=== PATIENT | female | born 1935 | race Caucasian/White ===

== ENCOUNTER → 2016-10-29 | Outpatient (CLI) | payer MEDICARE ==
[2016-10-29 11:54] LABS: Blood Urea Nitrogen 13 mg/dL (7-17); Non-African American GFR(MDRD) 60 (>60 ml/min/1.73 sqM)
--- NOTE | 2016-10-29 13:38 | CT ---
EXAMINATION TYPE: CT ChestAbdPelvis w con DATE OF EXAM: 10/29/2016 COMPARISON: 02/28/2016 HISTORY: Follow up breast cancer. No complaints at time of scan CT DLP: 1360 mGycm CONTRAST: CT scan of the chest, abdomen and pelvis is performed with Oral Contrast and with IV Contrast, patien t injected with 80 mL of Visipaque 320. CT Chest: LUNGS: There is a new right-sided pleural effusion measuring 2.6 there is also a new small left-sided pleural effusion measuring 1.7 cm in AP dimension. There is a left basilar compressive atelectasis. There are new scattered pulmonary nodules identified. Within the right lung are approximately 10 75 m m nodule seen. Within the left lung are approximately 7 or 8 7 6 mm nodule seen. The largest nodule i s noted within the lingula measuring 6 mm. Cm in AP dimension. MEDIASTINUM: Thoracic aorta is of normal caliber. The heart is not enlarged. No evidence for media stinal mass or adenopathy. Persistent thyroid nodularity. HILAR STRUCTURES: No evidence for mass. No hilar adenopathy is appreciated. OTHER: Left-sided mastectomy changes. CONTRAST CT ABDOMEN AND PELVIS FINDINGS: LIVER/GB: Enlarging suspicious lesion at the dome of the liver measuring 3.1 cm versus 2.4 cm. Lesion medial segment left hepatic lobe measuring 1.7 cm. Additional new lesion left hepatic lobe lat eral segment adjacent to the falciform ligament measures 2.1 cm. Scattered hepatic cysts are noted. PANCREAS: No inflammation. No distinct mass. SPLEEN: No splenic enlargement. No lesion seen. ADRENALS: No nodule. No thickening. KIDNEYS/BLADDER: Right nephrectomy changes noted. No hydronephrosis. No nephrolithiasis. No disctin ct renal mass. BOWEL: Normal appendix. Normal bowel caliber. No inflammation. GENITAL ORGANS: Calcified uterine mass is again noted. LYMPH NODES: No greater than 1cm abdominal or pelvic lymph nodes are appreciated. AORTA: No significant abnormality. OSSEOUS STRUCTURES: Essentially unchanged stable sclerotic osseous metaphyses. OTHER: No significant additional abnormality is seen. IMPRESSION: 1. Progressive and new hepatic lesions compatible with metastatic disease. 2. Bilateral pulmonary nodules and small pleural effusions suspicious for metastatic disease to the c hest. 3. Stable bony metastatic disease.
== END | disposition home or self-care (01) ==
LOC: RADCTMAIN 11:20
PROVIDERS: ATTEND Internal Medicine Hematology & Oncology
DX: C79.51 Secondary malignant neoplasm of bone (principal); C50.812 Malignant neoplasm of overlapping sites of left female breast; K76.9 Liver disease, unspecified; R91.8 Other nonspecific abnormal finding of lung field
CPT/HCPCS: 82565; 84520; 71260; 74177; 36415; Q9967

== ENCOUNTER 2016-12-04 13:10 | Inpatient (IN) | payer MEDICARE ==
--- NOTE | 2016-12-04 13:57 | ED ---
General Adult HPI - General Chief complaint: Shortness of Breath Stated complaint: SOB/cancer pt-sent by Dr. Cooper Time Seen by Provider: 12/04/16 13:10 Source: patient, RN notes reviewed Mode of arrival: wheelchair Limitations: no limitations - History of Present Illness Initial comments: This is a 81-year-old female who presents emergency Department complaining of shortness of breath. Her past medical history includes breast cancer for which she is receiving chemotherapy. Patient states since Thursday since been short of breath and it has been getting aggressively worse. Patient denies any fever chills or cough. Patient denies any chest pain or palpitations. Patient states exertion tends to make it worse. Patient denies any abdominal pain patient denies nausea vomiting diarrhea. Patient denies any leg swelling or calf tenderness. Patient denies any recent long trips or travel. Patient denies any headache patient denies numbness weakness. Patient denies lightheaded this or dizziness. - Related Data Home Medications Medication Instructions Recorded Confirmed ALPRAZolam [Xanax] 0.25 mg PO BID PRN 07/05/15 12/04/16 Calcium Carbonate [Calcium] 600 mg PO DAILY 12/04/16 12/04/16 Carvedilol [Coreg] 12.5 mg PO AC-BID 12/04/16 12/04/16 Cholecalciferol [Vitamin D3] 2,000 unit PO DAILY 12/04/16 12/04/16 Lisinopril [Zestril] 10 mg PO BID 12/04/16 12/04/16 Prochlorperazine [Compazine] 10 mg PO Q6H PRN 12/04/16 12/04/16 Ribociclib Succinate [Kisqali] 200 mg PO TID 12/04/16 12/04/16 Previous Rx's Medication Instructions Recorded Furosemide [Lasix] 20 mg PO DAILY #90 tablet 01/05/14 Allergies Allergy/AdvReac Type Severity Reaction Status Date / Time Penicillins Allergy Rash/Hives Verified 12/04/16 13:57 Review of Systems ROS Statement: Those systems with pertinent positive or pertinent negative responses have been documented in the HPI. ROS Other: All systems not noted in ROS Statement are negative. Past Medical History Past Medical History: Cancer, Heart Failure, Diabetes Mellitus, Hyperlipidemia, Hypertension, Renal Disease Additional Past Medical History / Comment(s): LT Breast Cancer which is metastatic involving the chest wall and lungs. Renal Cell CA, resected, EDEMA TO LOWER LEGS History of Any Multi-Drug Resistant Organisms: None Reported Additional Past Surgical History / Comment(s): cataracts LT & R EYE, right nephrectomy Past Anesthesia/Blood Transfusion Reactions: No Reported Reaction Past Psychological History: No Psychological Hx Reported Smoking Status: Never smoker Past Alcohol Use History: None Reported Past Drug Use History: None Reported - Past Family History Father Family Medical History: Congestive Heart Failure (CHF) Additional Family Medical History / Comment(s): AT AGE 87- CHF. AT AGE 82 HAD VALVE REPLACEMENT Mother Additional Family Medical History / Comment(s): MOM AT AGE 82-CERVICAL CA General Exam - General Exam Comments Initial Comments: GENERAL: Patient is well-developed and well-nourished. Patient is nontoxic and well- hydrated and is in mild distress. ENT: Neck is soft and supple. No significant lymphadenopathy is noted. Oropharynx is clear. Moist mucous membranes. Neck has full range of motion without eliciting any pain. EYES: The sclera were anicteric and conjunctiva were pink and moist. Extraocular movements were intact and pupils were equal round and reactive to light. Eyelids were unremarkable. PULMONARY: Unlabored respirations. Good breath sounds bilaterally. No audible rales rhonchi or wheezing was noted. CARDIOVASCULAR: There is a regular rate and rhythm without any murmurs gallops or rubs. Unable to fully assess the chest because of significant bandaging around the chest ABDOMEN: Soft and nontender with normal bowel sounds. SKIN: Skin is clear with no lesions or rashes and otherwise unremarkable. NEUROLOGIC: Patient is alert and oriented x3. Cranial nerves II through XII are grossly intact. Motor and sensory are also intact. Normal speech, volume and content. Symmetrical smile. MUSCULOSKELETAL: Normal extremities with adequate strength and full range of motion. No lower extremity swelling or edema. No calf tenderness. LYMPHATICS: No significant lymphadenopathy is noted PSYCHIATRIC: Normal psychiatric evaluation. Limitations: no limitations Course Vital Signs 12/04/16 12/04/16 12/04/16 13:17 15:10 16:21 Temperature 98.6 F Pulse Rate 68 68 65 Respiratory 18 18 18 Rate Blood Pressure 110/59 135/68 148/76 O2 Sat by Pulse 93 L 95 95 Oximetry 12/04/16 12/04/16 12/04/16 17:10 17:54 19:20 Temperature 98.5 F Pulse Rate 66 62 65 Respiratory 18 18 18 Rate Blood Pressure 158/81 138/87 143/76 O2 Sat by Pulse 95 95 96 Oximetry 12/04/16 19:38 Temperature 98.6 F Pulse Rate Respiratory Rate Blood Pressure O2 Sat by Pulse Oximetry Medical Decision Making - Medical Decision Making EKG is a very poor quality secondary to the bandaging around the patient's chest does show 60 bpm and in the limb leads Chest x-ray showed pulmonary edema. Chest x-ray also showed bilateral pleural effusions. I started the patient Lasix and nitroglycerin at that time. Patient had an elevated d-dimer so I ordered a CAT scan of the chest. I spoke with because he agreed to admit the patient admitted the patient I wrote admitting orders. I continue the Lasix Nitropaste on the floor. I consult cardiology. - Lab Data Result diagrams: 12/06/16 05:58 12/06/16 05:58 Lab Results 12/04/16 12/04/16 12/04/16 Range/Units 14:00 14:00 14:00 WBC 7.9 (3.8-10.6) k/uL RBC 3.60 L (3.80-5.40) m/uL Hgb 12.2 (11.4-16.0) gm/dL Hct 37.9 (34.0-46.0) % MCV 105.3 H (80.0-100.0) fL MCH 33.8 (25.0-35.0) pg MCHC 32.2 (31.0-37.0) g/dL RDW 15.4 (11.5-15.5) % Plt Count 252 (150-450) k/uL Neutrophils % 90 % Lymphocytes % 7 % Monocytes % 1 % Eosinophils % 1 % Basophils % 0 % Neutrophils # 7.2 (1.3-7.7) k/uL Lymphocytes # 0.6 L (1.0-4.8) k/uL Monocytes # 0.1 (0-1.0) k/uL Eosinophils # 0.0 (0-0.7) k/uL Basophils # 0.0 (0-0.2) k/uL Macrocytosis Moderate PT (9.0-12.0) sec INR (<1.2) APTT (22.0-30.0) sec D-Dimer (<0.60) mg/L FEU Sodium 139 (137-145) mmol/L Potassium 4.3 (3.5-5.1) mmol/L Chloride 99 (98-107) mmol/L Carbon Dioxide 29 (22-30) mmol/L Anion Gap 11 mmol/L BUN 32 H (7-17) mg/dL Creatinine 1.20 H (0.52-1.04) mg/dL Est GFR (MDRD) Af Amer 53 (>60 ml/min/1.73 sqM) Est GFR (MDRD) Non-Af 43 (>60 ml/min/1.73 sqM) Glucose 205 H (74-99) mg/dL Calcium 8.2 L (8.4-10.2) mg/dL Magnesium 2.2 (1.6-2.3) mg/dL Total Bilirubin 0.5 (0.2-1.3) mg/dL AST 36 (14-36) U/L ALT 53 H (9-52) U/L Alkaline Phosphatase 211 H (38-126) U/L Total Creatine Kinase 35 (30-135) U/L CK-MB (CK-2) 0.7 (0.0-2.4) ng/mL CK-MB (CK-2) Rel Index 2.0 Troponin I 0.202 H* (0.000-0.034) ng/mL NT-Pro-B Natriuret Pep pg/mL Total Protein 5.9 L (6.3-8.2) g/dL Albumin 3.1 L (3.5-5.0) g/dL 12/04/16 12/04/16 Range/Units 14:00 14:00 WBC (3.8-10.6) k/uL RBC (3.80-5.40) m/uL Hgb (11.4-16.0) gm/dL Hct (34.0-46.0) % MCV (80.0-100.0) fL MCH (25.0-35.0) pg MCHC (31.0-37.0) g/dL RDW (11.5-15.5) % Plt Count (150-450) k/uL Neutrophils % % Lymphocytes % % Monocytes % % Eosinophils % % Basophils % % Neutrophils # (1.3-7.7) k/uL Lymphocytes # (1.0-4.8) k/uL Monocytes # (0-1.0) k/uL Eosinophils # (0-0.7) k/uL Basophils # (0-0.2) k/uL Macrocytosis PT 10.9 (9.0-12.0) sec INR 1.1 (<1.2) APTT 24.8 (22.0-30.0) sec D-Dimer 3.00 H (<0.60) mg/L FEU Sodium (137-145) mmol/L Potassium (3.5-5.1) mmol/L Chloride (98-107) mmol/L Carbon Dioxide (22-30) mmol/L Anion Gap mmol/L BUN (7-17) mg/dL Creatinine (0.52-1.04) mg/dL Est GFR (MDRD) Af Amer (>60 ml/min/1.73 sqM) Est GFR (MDRD) Non-Af (>60 ml/min/1.73 sqM) Glucose (74-99) mg/dL Calcium (8.4-10.2) mg/dL Magnesium (1.6-2.3) mg/dL Total Bilirubin (0.2-1.3) mg/dL AST (14-36) U/L ALT (9-52) U/L Alkaline Phosphatase (38-126) U/L Total Creatine Kinase (30-135) U/L CK-MB (CK-2) (0.0-2.4) ng/mL CK-MB (CK-2) Rel Index Troponin I (0.000-0.034) ng/mL NT-Pro-B Natriuret Pep 1760 pg/mL Total Protein (6.3-8.2) g/dL Albumin (3.5-5.0) g/dL Critical Care Time Critical Care Time: Yes Total Critical Care Time: 35 Disposition Clinical Impression: Congestive heart failure, Bilateral pleural effusion Disposition: ADMITTED IP TO THIS [facility] Time of Disposition: 10:25
[2016-12-04 14:25] LABS: Basophils % (A) 0 %; CH 34.6; Eosinophils % (A) 1 %; HCT 37.9 % (34.0-46.0); HDW 2.32; HGB 12.2 gm/dL (11.4-16.0); Luc # (Auto) 0.11; Luc % (Auto) 1; Lymphocytes # (A) 0.6 k/uL (1.0-4.8); Lymphocytes % (A) 7 %; MCH 33.8 pg (25.0-35.0); MCHC 32.2 g/dL (31.0-37.0); MCV 105.3 fL (80.0-100.0); Macrocytosis Moderate; Mean Platelet Volume 8.8; Monocytes # (A) 0.1 k/uL (0-1.0); Monocytes % (A) 1 %; Neutrophils # (A) 7.2 k/uL (1.3-7.7); Neutrophils % (A) 90 %; RDW 15.4 % (11.5-15.5); WBC 7.9 k/uL (3.8-10.6); WBC (Perox) 8.06
[2016-12-04 14:36] LABS: Calcium 8.2 mg/dL (8.4-10.2); Magnesium 2.2 mg/dL (1.6-2.3); Potassium 4.3 mmol/L (3.5-5.1); Total Bilirubin 0.5 mg/dL (0.2-1.3); Total Protein 5.9 g/dL (6.3-8.2)
--- NOTE | 2016-12-04 14:41 | XR ---
EXAMINATION TYPE: XR chest 2V DATE OF EXAM: 12/04/2016 COMPARISON: 01/06/2014 HISTORY: Difficulty breathing FINDINGS: There are bilateral pleural effusions with cardiomegaly and bibasilar infiltrate. There is a diffuse interstitial pattern. Arthropathy of the shoulders and diffuse osteopenia. IMPRESSION: 1. Correlate for CHF with bilateral effusion and consolidation.
[2016-12-04 14:54] LABS: INR 1.1 (<1.2); Partial Thromboplastin Time 24.8 sec (22.0-30.0); Prothrombin Time 10.9 sec (9.0-12.0)
[2016-12-04 15:00] LABS: Creatine Kinase MB 0.7 ng/mL (0.0-2.4)
[2016-12-04 15:06] LABS: Troponin I 0.202 ng/mL (0.000-0.034)
[2016-12-04] MEDS ORDERED: RX INFO: IV CONTRAST WAS GIVEN 1 EACH MISC MISCELLANE PRN (15:09)
[2016-12-04] MEDS ORDERED: NITROGLYCERIN OINT 1 INCH/GM PACKET TOPICAL STA (16:55)
[2016-12-04] MEDS ORDERED: FUROSEMIDE 10 MG/ML 4 ML VIAL IV STA (16:55)
--- NOTE | 2016-12-04 17:00 | CT ---
EXAMINATION TYPE: CT chest angio for PE DATE OF EXAM: 12/04/2016 COMPARISON: Chest x-ray earlier today. CT chest abdomen and pelvis from October 29, 2016 HISTORY: SOB and elevated D-Dimer. Chest pain per order. History of breast and renal cancer. CT DLP: 391 mGycm. Automated Exposure Control for Dose Reduction was Utilized. CONTRAST: CTA scan of the thorax is performed with IV Contrast, patient injected with 80 mL of Visipaque 320, p ulmonary embolism protocol. MIP Images are created on CT scanner and reviewed. FINDINGS: LUNGS: There are now moderate right greater than left bilateral pleural effusions increased in size f rom prior study extending to lung apices. There is associated compressive atelectasis in both bases. Respiratory motion artifact is seen. No pneumothorax is present bilaterally. Previously described nod ules are scattered by increasing effusions and associated atelectasis. MEDIASTINUM: There is suboptimal bolus with equal contrast seen in the right and left systems and het erogeneity identified, there is no large saddle central pulmonary embolism, smaller segmental and sub segmental PE cannot be entirely excluded on this exam. There are no greater than 1 cm hilar or media stinal lymph nodes. Cardiomegaly is redemonstrated. There is slightly more prominent small to tiny pe ricardial effusion Coronary artery calcification is again seen which is noted marker for coronary art dejon disease. Heterogeneous nodular appearance to thyroid gland is redemonstrated. OTHER: There is persistent ill-defined heterogeneous hypodense 3.2 cm metastatic lesion posterior rig ht hepatic dome on axial image 122. There is persistent 2.2 cm heterogeneous hypodense metastatic les ion left hepatic lobe on axial image 149. Surgical clips from right-sided nephrectomy are partially i antonia. There is persistent abnormal thickening over the right breast with asymmetric heterogeneous fibroglan dular tissue seen with background of dense tissue noted in both breasts, cannot rule out underlying m ass. Osseous structures are demineralized. There are multilevel sclerotic lesions involving the spine sternal and bilateral ribs consistent with diffuse osseous metastatic disease. Note is made of some asymmetric soft tissue swelling and edema in the visualized right upper extremi ty coronal images 91 through 111. IMPRESSION: 1. Suboptimal study due to predominantly significant respiratory motion artifact degradation, no larg e central pulmonary embolism, smaller segmental and subsegmental PE cannot be excluded though likely not present. 2. Consider worsening CHF exacerbation as there is cardiomegaly with now moderate size right greater than left pleural effusions. 3. Possible residual inflammatory tumor versus treated neoplasm right breast. Diffuse osseous metasta tic disease is redemonstrated. Hepatic metastatic disease is redemonstrated. 4. Right upper extremity swelling and edema partially imaged could reflect product of prior breast river rgery and axillary lymph node dissection, other etiologies are not excluded. Clinical correlation adv ised.
[2016-12-04] MEDS ORDERED: ONDANSETRON 4 MG/2 ML VIAL IVP STA (17:15)
[2016-12-04] MEDS ORDERED: ASPIRIN 325 MG TAB PO STA (17:15)
[2016-12-04] MEDS ORDERED: FUROSEMIDE 10 MG/ML 4 ML VIAL IV SCH (17:15)
[2016-12-04] MEDS ORDERED: ALPRAZolam 0.25 MG TAB PO PRN (21:04)
[2016-12-04] MEDS ORDERED: PROCHLORPERAZINE 10 MG TAB PO PRN (21:04)
[2016-12-04] MEDS: FAMOTIDINE 20 MG TAB PO SCH (22:09)
[2016-12-04] MEDS: CARVEDILOL 12.5 MG TAB PO SCH (22:09)
[2016-12-04] MEDS: NITROGLYCERIN OINT 1 INCH/GM PACKET TOPICAL SCH (22:09)
[2016-12-04] MEDS: LISINOPRIL 10 MG TAB PO SCH (22:09)
[2016-12-05] MEDS: FUROSEMIDE 10 MG/ML 4 ML VIAL IV SCH ×3 (00:15→15:43)
[2016-12-05] MEDS: HEPARIN SODIUM,PORCINE 5,000 UNIT/ML 1 ML VIAL SQ SCH ×3 (00:15→15:43)
[2016-12-05] MEDS: METOCLOPRAMIDE 5 MG/ML 2 ML VIAL IVP PRN (00:18)
[2016-12-05 06:05] LABS: Basophils % (A) 0 %; CH 34.3; CHCM 32.2; Eosinophils % (A) 0 %; HDW 2.31; HGB 10.9 gm/dL (11.4-16.0); Luc # (Auto) 0.04; Luc % (Auto) 1; Lymphocytes # (A) 0.5 k/uL (1.0-4.8); Lymphocytes % (A) 12 %; MCH 33.4 pg (25.0-35.0); MCHC 31.1 g/dL (31.0-37.0); MCV 107.2 fL (80.0-100.0); Macrocytosis Moderate; Mean Platelet Volume 8.7; Monocytes # (A) 0.1 k/uL (0-1.0); Monocytes % (A) 1 %; Neutrophils # (A) 3.5 k/uL (1.3-7.7); Neutrophils % (A) 85 %; RBC 3.27 m/uL (3.80-5.40); RDW 15.6 % (11.5-15.5); WBC 4.1 k/uL (3.8-10.6); WBC (Perox) 4.12
[2016-12-05 06:19] LABS: Calcium 7.2 mg/dL (8.4-10.2); Potassium 4.1 mmol/L (3.5-5.1)
[2016-12-05] MEDS: CARVEDILOL 12.5 MG TAB PO SCH ×2 (06:50→15:44)
[2016-12-05] MEDS: CHOLECALCIFEROL 1,000 UNIT TAB PO SCH (08:06)
[2016-12-05] MEDS: CALCIUM CARBONATE 500 MG CHEWABLE PO SCH (08:07)
[2016-12-05] MEDS: NITROGLYCERIN OINT 1 INCH/GM PACKET TOPICAL SCH ×2 (08:07→13:20)
[2016-12-05] MEDS: FAMOTIDINE 20 MG TAB PO SCH (08:07)
[2016-12-05] MEDS: LISINOPRIL 10 MG TAB PO SCH ×2 (08:17→20:26)
[2016-12-05] MEDS ORDERED: ASPIRIN 325 MG TAB PO SCH (09:00)
--- NOTE | 2016-12-05 15:10 | P.CRDCN ---
History of Present Illness Consult date: 12/05/16 Requesting physician: Enoc Martinez Consult reason: congestive heart failure Chief complaint: Shortness of breath History of present illness: This is a pleasant 81-year-old female with history of stage IV breast CA, hypertension, insulin requiring diabetes, hyperlipidemia, who presented to the hospital with symptoms of progressively worsening shortness of breath. Patient does have history of pericardial effusion with pericardiectomy and evacuation of effusion performed in 2013. She presents to the hospital with symptoms of progressively worsening shortness of breath. EKG on arrival showed a normal sinus rhythm with no acute changes. Chest x-ray revealed congestive heart failure with bilateral effusions and consolidation. CT of the chest was a suboptimal study due to predominantly significant respiratory motion artifact degradation. No large central pulmonary embolism, smaller segmental and subsegmental PE cannot be excluded although likely not present. Consider worsening congestive heart failure exacerbation as there is cardiomegaly with now moderate size right greater than left pleural effusions. Possible residual inflammatory tumor versus treated neoplasm of the right breast. Blood pressure on arrival here 110/60 with a heart rate in the 60s, 93% on room air. Hemoglobin 10.9, 12.2 yesterday, d-dimer 3.0, potassium 4.1, BUN 35, creatinine 1.2. BNP level 1760, troponin 0.202. Time of my examination, patient is resting comfortably in bed, daughter at bedside. She appears comfortable, no complaints at present. Past Medical History Past Medical History: Cancer, Heart Failure, Diabetes Mellitus, Hypertension, Renal Disease Additional Past Medical History / Comment(s): LT Breast Cancer which is metastatic involving the chest wall and lungs. Renal Cell CA, resected, EDEMA TO LOWER LEGS History of Any Multi-Drug Resistant Organisms: None Reported Additional Past Surgical History / Comment(s): cataracts LT & R EYE, right nephrectomy Past Anesthesia/Blood Transfusion Reactions: No Reported Reaction Past Psychological History: No Psychological Hx Reported Smoking Status: Never smoker Past Alcohol Use History: None Reported Past Drug Use History: None Reported - Past Family History Father Family Medical History: Congestive Heart Failure (CHF) Additional Family Medical History / Comment(s): AT AGE 87- CHF. AT AGE 82 HAD VALVE REPLACEMENT Mother Additional Family Medical History / Comment(s): MOM AT AGE 82-CERVICAL CA Medications and Allergies Home Medications Medication Instructions Recorded Confirmed Type ALPRAZolam [Xanax] 0.25 mg PO BID PRN 07/05/15 12/04/16 History Calcium Carbonate [Calcium] 600 mg PO DAILY 12/04/16 12/04/16 History Carvedilol [Coreg] 12.5 mg PO AC-BID 12/04/16 12/04/16 History Cholecalciferol [Vitamin D3] 2,000 unit PO DAILY 12/04/16 12/04/16 History Lisinopril [Zestril] 10 mg PO BID 12/04/16 12/04/16 History Prochlorperazine [Compazine] 10 mg PO Q6H PRN 12/04/16 12/04/16 History Ribociclib Succinate [Kisqali] 200 mg PO TID 12/04/16 12/04/16 History Allergies Allergy/AdvReac Type Severity Reaction Status Date / Time Penicillins Allergy Rash/Hives Verified 12/04/16 13:57 Physical Exam Vitals: Vital Signs Temp Pulse Pulse Resp BP BP Pulse Ox 12/05/16 12:00 16 12/05/16 11:31 97.1 F L 72 16 130/66 92 L 12/05/16 08:00 97.1 F L 70 16 99/54 96 12/05/16 04:00 96.9 F L 62 18 97/52 97 12/05/16 00:00 98.2 F 69 18 139/78 98 12/04/16 20:00 97.0 F L 67 18 144/66 96 12/04/16 19:38 98.6 F 12/04/16 19:20 65 18 143/76 96 12/04/16 17:54 62 18 138/87 95 12/04/16 17:10 98.5 F 66 18 158/81 95 12/04/16 16:21 65 18 148/76 95 12/04/16 15:10 68 18 135/68 95 Intake and Output 12/05/16 12/05/16 12/05/16 06:59 14:59 22:59 Output Total 300 Balance -300 Output: Urine 300 Other: # Voids 1 Weight 67.8 kg PHYSICAL EXAMINATION: HEENT: Head is atraumatic, normocephalic. Pupils equal, round. Neck is supple. There is elevated jugular venous pressure. HEART EXAMINATION: Heart S1, S2 normal. No murmur or gallop heard. CHEST EXAMINATION: Revealed diminished air entry to bilateral bases. Dressing in place the entire anterior chest wall area ABDOMEN: Soft, nontender. Bowel sounds are heard. No organomegaly noted. EXTREMITIES: 2+ peripheral pulses with evidence of peripheral edema and no calf tenderness noted. NEUROLOGIC patient is awake, alert and oriented -3. . Results 12/05/16 05:50 12/05/16 05:50 Cardiac Enzymes 12/04/16 Range/Units 14:00 CK-MB (CK-2) 0.7 (0.0-2.4) ng/mL Troponin I 0.202 H* (0.000-0.034) ng/mL CBC 12/05/16 Range/Units 05:50 WBC 4.1 (3.8-10.6) k/uL RBC 3.27 L (3.80-5.40) m/uL Hgb 10.9 L (11.4-16.0) gm/dL Hct 35.0 (34.0-46.0) % Plt Count 226 (150-450) k/uL Comprehensive Metabolic Panel 12/05/16 Range/Units 05:50 Sodium 139 (137-145) mmol/L Potassium 4.1 (3.5-5.1) mmol/L Chloride 104 (98-107) mmol/L Carbon Dioxide 27 (22-30) mmol/L BUN 35 H (7-17) mg/dL Creatinine 1.20 H (0.52-1.04) mg/dL Glucose 161 H (74-99) mg/dL Calcium 7.2 L (8.4-10.2) mg/dL Current Medications Generic Name Dose Route Start Last Admin Trade Name Freq PRN Reason Stop Dose Admin Alprazolam 0.25 mg 12/04/16 21:04 Xanax PO BID PRN Anxiety Aspirin 81 mg 12/06/16 09:00 Aspirin PO DAILY [facility] Calcium Carbonate/Glycine 500 mg 12/05/16 12:00 12/05/16 08:07 Tums PO 500 mg DAILY@1200 [facility] Administration Carvedilol 12.5 mg 12/04/16 21:30 12/05/16 06:50 Coreg PO 12.5 mg AC-BID [facility] Administration Cholecalciferol 2,000 unit 12/05/16 12:00 12/05/16 08:06 Vitamin D3 PO 2,000 unit DAILY@1200 [facility] Administration Famotidine 20 mg 12/06/16 09:00 Pepcid PO DAILY [facility] Furosemide 40 mg 12/05/16 00:00 12/05/16 08:06 Lasix IV 40 mg Q8H [facility] Administration Heparin Sodium (Porcine) 5,000 unit 12/05/16 00:00 12/05/16 08:06 Heparin SQ 5,000 unit Q8HR [facility] Administration Lisinopril 10 mg 12/04/16 21:30 12/05/16 08:17 Zestril PO Not Given BID [facility] Metoclopramide HCl 10 mg 12/04/16 21:11 12/05/16 00:18 Reglan IVP 10 mg Q6HR PRN Administration Nausea Miscellaneous Information 1 each 12/04/16 15:09 12/04/16 17:20 Rx Info: Iv Contrast Was Given MISCELLANE 12/06/16 15:09 1 each DAILY PRN Administration Per Protocol Nitroglycerin 1 inch 12/04/16 22:00 12/05/16 13:20 Nitro-Bid Oint TOPICAL Not Given QID [facility] Prochlorperazine Maleate 10 mg 12/04/16 21:04 Compazine PO Q6H PRN Nausea Intake and Output 12/05/16 12/05/16 12/05/16 06:59 14:59 22:59 Output Total 300 Balance -300 Output: Urine 300 Other: # Voids 1 Weight 67.8 kg 12/05/16 05:50 12/05/16 05:50 EKG Interpretations (text) EKG shows normal sinus rhythm with no acute changes. Assessment and Plan Plan: Assessment and plan #1 systolic congestive heart failure acute on chronic. Most recent echocardiogram with Doppler study we have available was performed in 2013 at that time the patient had an ejection fraction of less than 20%. She did at that time however have a large pericardial effusion and underwent pericardiectomy with evacuation of pericardial effusion. #2 stage IV breast cancer with metastases involving the chest wall and lungs, undergoing chemotherapy. #3 hypertension #4 acute on chronic kidney disease Plan We will attempt to perform at least a limited echocardiogram with Doppler study to assess the patient's LV function and assess for possible fluid. Continue diuresing with IV Lasix. Continue to monitor intake and output along with daily weights. We will decrease her aspirin to 81 mg daily. Discontinue Nitropaste. Continue Coreg and lisinopril. Add a small dose of Aldactone to her medication regime. Further recommendations to follow. DNP note has been reviewed, I agree with a documented findings and plan of care. Patient was seen and examined.
[2016-12-05] MEDS: RIBOCICLIB SUCCINATE PO SCH ×2 (15:39→15:56)
--- NOTE | 2016-12-05 17:44 | P.CONS ---
History of Present Illness - Reason for Consult Consult date: 12/05/16 metastatic breast cancer, on treatment Requesting physician: Gilbert Mack - Chief Complaint SOB - History of Present Illness Ms. Dawson is a very pleasant female patient well known to our practice a very extensive breast cancer history extending back at least 2012. Pt has had multiple different lines of treatment. Over the last year the patient has had fungating tumors of the chest wall associated with her breast cancer, patient and her family have been caring for these wounds very well. Dr. 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 She has been on ribociclib for just about one week. Patient was due in the office today for er- evaluation. Patient states that she had progressive shortness of breath and difficulty in breathing over the last day or so, she denied fevers, oral irritation, cough, frothy sputum, chest pain, she did have nausea but no vomiting, denied abdominal pain, dysuria, hematuria, diarrhea or constipation, bleeding or pain. Review of Systems All systems: negative Constitutional: Reports as per HPI Past Medical History Past Medical History: Cancer, Heart Failure, Diabetes Mellitus, Hypertension, Renal Disease Additional Past Medical History / Comment(s): LT Breast Cancer which is metastatic involving the chest wall and lungs. Renal Cell CA, resected, EDEMA TO LOWER LEGS History of Any Multi-Drug Resistant Organisms: None Reported Additional Past Surgical History / Comment(s): cataracts LT & R EYE, right nephrectomy Past Anesthesia/Blood Transfusion Reactions: No Reported Reaction Past Psychological History: No Psychological Hx Reported Smoking Status: Never smoker Past Alcohol Use History: None Reported Past Drug Use History: None Reported - Past Family History Father Family Medical History: Congestive Heart Failure (CHF) Additional Family Medical History / Comment(s): AT AGE 87- CHF. AT AGE 82 HAD VALVE REPLACEMENT Mother Additional Family Medical History / Comment(s): MOM AT AGE 82-CERVICAL CA Medications and Allergies Home Medications Medication Instructions Recorded Confirmed Type ALPRAZolam [Xanax] 0.25 mg PO BID PRN 07/05/15 12/04/16 History Calcium Carbonate [Calcium] 600 mg PO DAILY 12/04/16 12/04/16 History Carvedilol [Coreg] 12.5 mg PO AC-BID 12/04/16 12/04/16 History Cholecalciferol [Vitamin D3] 2,000 unit PO DAILY 12/04/16 12/04/16 History Lisinopril [Zestril] 10 mg PO BID 12/04/16 12/04/16 History Prochlorperazine [Compazine] 10 mg PO Q6H PRN 12/04/16 12/04/16 History Ribociclib Succinate [Kisqali] 200 mg PO TID 12/04/16 12/04/16 History Allergies Allergy/AdvReac Type Severity Reaction Status Date / Time Penicillins Allergy Rash/Hives Verified 12/04/16 13:57 Physical Exam Vitals: Vital Signs Temp Pulse Pulse Resp BP BP Pulse Ox 12/05/16 15:54 63 18 12/05/16 15:53 97.3 F L 63 18 141/71 93 L 12/05/16 12:00 16 12/05/16 11:31 97.1 F L 72 16 130/66 92 L 12/05/16 08:00 97.1 F L 70 16 99/54 96 12/05/16 04:00 96.9 F L 62 18 97/52 97 12/05/16 00:00 98.2 F 69 18 139/78 98 12/04/16 20:00 97.0 F L 67 18 144/66 96 12/04/16 19:38 98.6 F 12/04/16 19:20 65 18 143/76 96 12/04/16 17:54 62 18 138/87 95 12/04/16 17:10 98.5 F 66 18 158/81 95 Intake and Output 12/05/16 12/05/16 12/05/16 06:59 14:59 22:59 Output Total 300 Balance -300 Output: Urine 300 Other: # Voids 1 Weight 67.8 kg 67.8 kg Patient Weight 12/06/16 06:59 Weight 67.8 kg - Constitutional General appearance: average body habitus, cooperative, no acute distress - EENT Eyes: anicteric sclerae, EOMI, PERRLA ENT: normal oropharynx - Neck Neck: no lymphadenopathy - Respiratory Respiratory: right: CTA, left: diminished - Cardiovascular Rhythm: regular Heart sounds: normal: S1, S2 Abnormal Heart Sounds: no systolic murmur, no diastolic murmur, no rub, no S3 Gallop, no S4 Gallop, no click, no other leg Peripheral Edema: bilateral: None - Gastrointestinal General gastrointestinal: no absent bowel sounds, no decreased bowel sounds, no distended, no hepatomegaly, no hyperactive bowel sounds, normal bowel sounds, no organomegaly, no rigid, no scaphoid, soft, no splenomegaly, no tenderness, no umbilical hernia, no ventral hernia - Integumentary Integumentary: decreased turgor - Neurologic Neurologic: CNII-XII intact - Musculoskeletal Musculoskeletal: generalized weakness - Psychiatric Psychiatric: A&O x's 3, appropriate affect, intact judgment & insight Results CBC & Chem 7: 12/05/16 05:50 12/05/16 05:50 Labs: Abnormal Lab Results - Last 24 Hours (Table) 12/05/16 12/05/16 Range/Units 05:50 05:50 RBC 3.27 L (3.80-5.40) m/uL Hgb 10.9 L (11.4-16.0) gm/dL MCV 107.2 H (80.0-100.0) fL RDW 15.6 H (11.5-15.5) % Lymphocytes # 0.5 L (1.0-4.8) k/uL BUN 35 H (7-17) mg/dL Creatinine 1.20 H (0.52-1.04) mg/dL Glucose 161 H (74-99) mg/dL Calcium 7.2 L (8.4-10.2) mg/dL Comments: EKG reviewed Chest x-ray: report reviewed CT scan - chest: report reviewed Assessment and Plan (1) Breast cancer Status: Chronic Plan: CT of the chest was reviewed by Dr. Palmer. Evidence is not convincing of PE, patient is not on full dose anticoagulation. Agree with DVT prophylaxis. Cardiology consultation reviewed. EKG report was reviewed. QT was documented at 776 ms, ribociclib does require cardiac monitoring, and a potential complication is QT prolongation. Ribociclib will be held for now. This was reinforced with the patient several times. Did contact nursing and asked him to remove the medication from the patient's bedside. Patient was told not to resume the medication until she is been reevaluated in the office. Patient is being monitored and managed by cardiology. We'll consider resuming ribociclib at a reduced dose once patient has been treated medically and reevaluated.
--- NOTE | 2016-12-05 20:16 | ECHOF ---
Referral Reason:chf MEASUREMENTS -------- HEIGHT: 160.0 cm WEIGHT: 67.6 kg BP: 130/66 RVIDd: 3.9 cm (< 3.3) IVSd: 1.0 cm (0.6 - 1.1) LVIDd: 4.5 cm (3.9 - 5.3) LVPWd: 1.0 cm (0.6 - 1.1) IVSs: 1.5 cm LVIDs: 2.1 cm LVPWs: 1.5 cm MV E Osbaldo: 0.86 m/s MV DecT: 245 ms MV A Osbaldo: 0.85 m/s MV E/A Ratio: 1.01 RAP: 5.00 mmHg RVSP: 20.24 mmHg FINDINGS -------- Sinus rhythm. This was a technically difficult study with suboptimal views. Due to recent chest wall radiation, patients entire chest was covered in bandages. Overall left ventricular systolic function is normal with, an EF between 65 - 70 %. The right ventricle is mild to moderately enlarged. The left atrium is normal in size. The right atrium is normal in size. Aortic valve is trileaflet and is mildly thickened. There is no evidence of aortic regurgitation. There is no evidence of aortic stenosis. The mitral valve leaflets are mildly thickened. Mild mitral annular calcification present. There is trace to mild mitral regurgitation. Trace tricuspid regurgitation present. There is no evidence of pulmonary hypertension. The right ventricular systolic pressure, as measured by Doppler, is 20.24mmHg. The pulmonic valve was not well visualized. The aortic root size is normal. Normal inferior vena cava with normal inspiratory collapse consistent with estimated right atrial pressure of 5 mmHg. The pericardium is normal. There is no pericardial effusion. Large p leural Effusion with Fibrin. CONCLUSIONS -------- 1. Sinus rhythm. 2. The mitral valve leaflets are mildly thickened. 3. Mild mitral annular calcification present. 4. There is trace to mild mitral regurgitation. 5. Trace tricuspid regurgitation present. 6. There is no evidence of pulmonary hypertension. 7. The right ventricular systolic pressure, as measured by Doppler, is 20.24mmHg. 8. The pulmonic valve was not well visualized. 9. The aortic root size is normal. 10. There is no pericardial effusion. 11. Large pleural Effusion with Fibrin. 12. This was a technically difficult study with suboptimal views. 13. Due to recent chest wall radiation, patients entire chest was covered in bandages. 14. Overall left ventricular systolic function is normal with, an EF between 65 - 70 %. 15. The right ventricle is mild to moderately enlarged. 16. The left atrium is normal in size. 17. Aortic valve is trileaflet and is mildly thickened. 18. There is no evidence of aortic regurgitation. 19. There is no evidence of aortic stenosis. DETENTION SERGEANT: Jeramie Lang RDCS
[2016-12-06] MEDS: HEPARIN SODIUM,PORCINE 5,000 UNIT/ML 1 ML VIAL SQ SCH ×4 (00:15→23:55)
[2016-12-06] MEDS: FUROSEMIDE 10 MG/ML 4 ML VIAL IV SCH ×4 (00:16→23:55)
[2016-12-06] MEDS: CARVEDILOL 12.5 MG TAB PO SCH ×2 (06:12→18:09)
[2016-12-06 06:14] LABS: Basophils % (A) 0 %; CHCM 32.5; Eosinophils % (A) 0 %; HCT 35.6 % (34.0-46.0); Macrocytosis Moderate; RDW 15.5 % (11.5-15.5); WBC 4.1 k/uL (3.8-10.6)
[2016-12-06 06:20] LABS: CH 34.5; HDW 2.28; HGB 11.2 gm/dL (11.4-16.0); Luc # (Auto) 0.06; Luc % (Auto) 1; Lymphocytes # (A) 0.5 k/uL (1.0-4.8); Lymphocytes % (A) 12 %; MCH 33.4 pg (25.0-35.0); MCHC 31.3 g/dL (31.0-37.0); MCV 106.6 fL (80.0-100.0); Mean Platelet Volume 8.2; Monocytes % (A) 1 %; Neutrophils # (A) 3.5 k/uL (1.3-7.7); Neutrophils % (A) 85 %; RBC 3.34 m/uL (3.80-5.40); WBC (Perox) 4.33
[2016-12-06 06:23] LABS: Calcium 7.5 mg/dL (8.4-10.2); Potassium 3.4 mmol/L (3.5-5.1)
[2016-12-06] MEDS: ASPIRIN 81 MG CHEW PO SCH (08:32)
[2016-12-06] MEDS: LISINOPRIL 10 MG TAB PO SCH ×2 (08:32→21:01)
[2016-12-06] MEDS ORDERED: FAMOTIDINE 20 MG TAB PO SCH (09:00)
--- NOTE | 2016-12-06 12:03 | P.PN ---
Subjective Principal diagnosis: CHF This is a pleasant 81-year-old female patient with known stage IV breast cancer presented to the hospital with progressive dyspnea. The patient was diagnosed with congestive heart failure exacerbation and she was started on Lasix IV. She underwent a chest x-ray and computed tomography scan and both showed what it seems to be bilateral pleural effusion. PE was ruled out by the CTA. On follow-up with the patient today, she stated that she is feeling slightly better. She still have managed breathing sounds bilaterally most prominent on the left side. Objective - Vital Signs Vital signs: Vital Signs Temp 98.3 F 12/06/16 10:49 Pulse 58 L 12/06/16 10:49 Resp 18 12/06/16 10:49 BP 126/59 12/06/16 10:49 Pulse Ox 93 L 12/06/16 10:49 Intake & Output 12/05/16 12/06/16 12/06/16 18:59 06:59 18:59 Intake Total 365 Output Total 200 Balance 165 Weight 67.8 kg 65.5 kg Intake: Oral 365 Output: Urine 200 - Constitutional General appearance: Present: no acute distress - Respiratory Respiratory: bilateral: diminished - Cardiovascular Rhythm: regular Heart sounds: normal: S1, S2 - Labs CBC & Chem 7: 12/06/16 05:58 12/06/16 05:58 Labs: Abnormal Lab Results - Last 24 Hours (Table) 12/06/16 12/06/16 Range/Units 05:58 05:58 RBC 3.34 L (3.80-5.40) m/uL Hgb 11.2 L (11.4-16.0) gm/dL MCV 106.6 H (80.0-100.0) fL Lymphocytes # 0.5 L (1.0-4.8) k/uL Potassium 3.4 L (3.5-5.1) mmol/L BUN 34 H (7-17) mg/dL Creatinine 1.19 H (0.52-1.04) mg/dL Glucose 163 H (74-99) mg/dL Calcium 7.5 L (8.4-10.2) mg/dL Assessment and Plan Plan: We'll continue the Lasix IV. Continue monitor the kidney function and electrolytes. The patient continues to be volume overloaded at this point. The echocardiogram was performed and showed normal LV function.
--- NOTE | 2016-12-06 12:48 | HP ---
CHIEF COMPLAINT: Shortness of breath. HISTORY OF PRESENT ILLNESS: This 81-year-old woman with a past medical history of multiple medical problems such as history of CHF, diabetes mellitus, hypertension, history of renal failure, being followed by Dr. Nowak in the outpatient setting, also had a history of recent breast cancer, and the patient is receiving chemotherapy from Dr. Eaton. The patient had shortness of breath. She had no fever or cough. Because of increased shortness of breath and inability to ambulate, patient came to [facility] and was admitted for further evaluation and treatment. Chest x-ray was done which showed evidence of CHF with bilateral effusion consolidation, and a chest CT was done to rule out the possibility of pulmonary embolism which was a suboptimal study; however, CHF was suggested and possible residual inflammatory tumor versus treated neoplasm of the right breast was also noted. Diffuse osseous metastatic disease was also noted. The patient was admitted for further evaluation and treatment. There is no history of any fever, rigor or chills. No history of headache, loss of consciousness, seizures. PAST MEDICAL HISTORY: 1. Breast cancer with metastases. 2. History of CHF. 3. Diabetes mellitus. 4. Hypertension. HOME MEDICATIONS: 1. Kisqali 200 mg p.o. t.i.d. 2. Compazine 10 mg q.6 p.r.n. 3. Zestril 10 mg p.o. b.i.d. 4. Lasix 20 mg p.o. daily. 5. Vitamin D3 2000 daily. 6. Coreg 12.5 mg b.i.d. 7. Calcium 600 mg p.o. daily. 8. Xanax 0.25 mg b.i.d. p.r.n. ALLERGIES: PENICILLIN. FAMILY HISTORY: History of CHF in the family. in the family. SOCIAL HISTORY: No history of smoking. No history of alcohol. REVIEW OF SYSTEMS: ENT: No diminished hearing. No diminished vision. CARVIOVASCULAR SYSTEM: As mentioned earlier. RESPIRATORY SYSTEM: As mentioned earlier. GI: As mentioned earlier. : No dysuria, retention. NERVOUS SYSTEM: No numbness, weakness. ALLERGY/IMMUNOLOGY: No asthma, hayfever. MUSCULOSKELETAL: As mentioned earlier. HEMATOLOGY/ONCOLOGY: No history of anemia. ENDOCRINE: No history of diabetes, hypothyroidism. CONSTITUTIONAL: As mentioned earlier. DERMATOLOGY: Negative. RHEUMATOLOGY: Negative. PSYCHIATRY: As mentioned earlier. PHYSICAL EXAM: Patient is alert and oriented x3. Pulse is 63, blood pressure 141 /70, respiration 18, temperature 97.3, pulse ox 93% on room air. HEENT: Conjunctivae normal. Oral mucosa moist. NECK: Jugular venous distention in the root of the neck. CARDIOVASCULAR: S1, S2 muffled. Ejection systolic murmur present. RESPIRATORY: Breath sounds diminished at the bases. A few scattered rhonchi and crackles. Expiratory wheezing also present. ABDOMEN: Soft. Non-tender. No mass palpable. LEGS: Minimal bilateral leg edema. NERVOUS SYSTEM: Higher functions as mentioned earlier. Moves all 4 limbs. No focal motor or sensory deficit. LYMPHATICS: No lymph node palpable in neck, axillae or groin. SKIN: No ulcer, rash, bleeding. LAB INVESTIGATIONS: WBC 7.9, hemoglobin 12.2, MCV 105. D-dimer is 3. Creatinine is 1.2. Troponin 0.202. ASSESSMENT: 1. Congestive heart failure, acute exacerbation; ejection fraction unknown. 2. History of breast cancer with metastases, on chemotherapy. 3. Increased creatinine with mild acute renal failure. 4. Diabetes mellitus, type 2. 5. History of congestive heart failure. 6. Hypertension. RECOMMENDATIONS AND DISCUSSION: I recommend to continue the current medications , continue symptomatic treatment. Otherwise, at this time I would recommend continuing to monitor. Continue with the diuretics. Closely follow with Cardiology. See orders for further details. Discussed with the family, who understands and agrees. Further recommendations to follow. Repeat labs will be requested tomorrow. Also recommend that the patient follow up with primary physician closely after discharge. DVT prophylaxis. MTDD
[2016-12-06] MEDS: POTASSIUM CHLORIDE ER 20 MEQ TAB.ER PO SCH ×2 (14:15→14:17)
[2016-12-06] MEDS: CHOLECALCIFEROL 1,000 UNIT TAB PO SCH (14:16)
[2016-12-06] MEDS: CALCIUM CARBONATE 500 MG CHEWABLE PO SCH (14:16)
[2016-12-06] MEDS: PANTOPRAZOLE 40 MG/10 ML VIAL IVP SCH (21:04)
[2016-12-07] MEDS: CARVEDILOL 12.5 MG TAB PO SCH ×2 (06:28→16:57)
[2016-12-07 06:38] LABS: Basophils % (A) 0 %; CH 33.7; Eosinophils % (A) 2 %; HCT 35.9 % (34.0-46.0); HGB 11.6 gm/dL (11.4-16.0); Luc # (Auto) 0.08; Luc % (Auto) 3; Lymphocytes # (A) 0.6 k/uL (1.0-4.8); Lymphocytes % (A) 22 %; MCHC 32.2 g/dL (31.0-37.0); MCV 105.7 fL (80.0-100.0); Macrocytosis Moderate; Mean Platelet Volume 8.1; Monocytes % (A) 1 %; Neutrophils # (A) 2.1 k/uL (1.3-7.7); Neutrophils % (A) 73 %; RDW 15.2 % (11.5-15.5); WBC 2.8 k/uL (3.8-10.6); WBC (Perox) 2.91
[2016-12-07 07:05] LABS: Calcium 7.9 mg/dL (8.4-10.2); Potassium 3.9 mmol/L (3.5-5.1)
[2016-12-07] MEDS: PANTOPRAZOLE 40 MG/10 ML VIAL IVP SCH ×2 (07:58→21:35)
[2016-12-07] MEDS: ASPIRIN 81 MG CHEW PO SCH (07:58)
[2016-12-07] MEDS: LISINOPRIL 10 MG TAB PO SCH ×2 (07:58→21:34)
[2016-12-07] MEDS: HEPARIN SODIUM,PORCINE 5,000 UNIT/ML 1 ML VIAL SQ SCH ×3 (07:58→23:41)
[2016-12-07] MEDS: FUROSEMIDE 10 MG/ML 4 ML VIAL IV SCH ×2 (07:58→21:34)
[2016-12-07] MEDS ORDERED: HYDROcodone/APAP 5-325MG 1 EACH TAB PO PRN (10:02)
--- NOTE | 2016-12-07 10:46 | XR ---
EXAMINATION TYPE: XR chest 2V DATE OF EXAM: 12/07/2016 COMPARISON: 12/04/2016 HISTORY: 81 year-old female shortness of breath and CHF TECHNIQUE: Frontal and lateral views FINDINGS: Heart upper limits of normal in size. Atherosclerotic arch calcifications. Diffuse interstitial densi ties persist. Persistent but improving medial right basilar opacity. Small left and trace right pleur al effusions with adjacent opacities persist. IMPRESSION: 1. Improving, now mild CHF. 2. Similar small left and trace right pleural effusions with adjacent atelectasis and/or consolidatio n.
--- NOTE | 2016-12-07 10:57 | P.PN ---
Subjective Principal diagnosis: CHF This is a pleasant 81-year-old female patient with known stage IV breast cancer presented to the hospital with progressive dyspnea. The patient was diagnosed with congestive heart failure exacerbation and she was started on Lasix IV. She underwent a chest x-ray and computed tomography scan and both showed what it seems to be bilateral pleural effusion. PE was ruled out by the CTA. On follow-up with the patient today, she stated that she is feeling slightly better. The shortness of breath and bilateral lower extremities edema has improved. The repeat chest x-ray showed improvement as well in terms of CHF. Objective - Vital Signs Vital signs: Vital Signs Temp 98.9 F 12/07/16 04:00 Pulse 78 12/07/16 04:00 Resp 18 12/07/16 04:00 BP 128/69 12/07/16 04:00 Pulse Ox 94 L 12/07/16 04:00 Intake & Output 12/06/16 12/07/16 12/07/16 18:59 06:59 18:59 Intake Total 365 200 218 Output Total 550 1 Balance -185 199 218 Intake: Oral 365 200 218 Output: Urine 550 Stool 1 - Constitutional General appearance: Present: no acute distress - Respiratory Respiratory: bilateral: CTA - Cardiovascular Rhythm: regular Heart sounds: normal: S1, S2 - Labs CBC & Chem 7: 12/07/16 06:10 12/07/16 06:10 Labs: Abnormal Lab Results - Last 24 Hours (Table) 12/07/16 12/07/16 Range/Units 06:10 06:10 WBC 2.8 L (3.8-10.6) k/uL RBC 3.40 L (3.80-5.40) m/uL MCV 105.7 H (80.0-100.0) fL Lymphocytes # 0.6 L (1.0-4.8) k/uL BUN 37 H (7-17) mg/dL Creatinine 1.37 H (0.52-1.04) mg/dL Glucose 119 H (74-99) mg/dL Calcium 7.9 L (8.4-10.2) mg/dL Assessment and Plan Plan: This is a pleasant 81-year-old female patient with metastatic breast cancer was admitted to the hospital was congestive heart failure secondary to diastolic dysfunction. Clinically she has been feeling slightly better today in term of shortness of breath. The edema in both legs is better. The echocardiogram was performed and showed normal LV function. I am going to decrease the dose of Lasix to 40 mg IV twice a day. Continue monitor the kidney function and electrolytes. And continue following up with the patient.
[2016-12-07] MEDS: CALCIUM CARBONATE 500 MG CHEWABLE PO SCH (12:42)
[2016-12-07] MEDS: CHOLECALCIFEROL 1,000 UNIT TAB PO SCH (12:42)
--- NOTE | 2016-12-07 22:22 | PN ---
DATE OF SERVICE: 12/06/16 This 81-year-old woman who was admitted with CHF, acute exacerbation also had breast cancer with METS. The patient also had significant ulceration also which is being monitored closely in the outpatient setting. Otherwise 2D echo with Doppler showed normal ejection fraction. The patient also complaining of diminished appetite. Ejection fraction 65 to 70. Past medical history reviewed. REVIEW OF SYSTEMS: .Cardiology: No angina or palpitations. Respiratory: As mentioned earlier. GI: As mentioned earlier. : No dysuria. Nervous system: No numbness, weakness. The current medications are reviewed and include: Current medications include: 1. Xanax 0.5 b.i.d. 2. Aspirin 81 mg. 3. Coreg. 4. Vitamin D3. 5. Pepcid. 6. Zestril. 7. Reglan. PHYSICAL EXAMINATION: On exam, the patient is alert and oriented times three. Pulse 69. Blood pressure 119/60. Respiratory rate 18. Temperature 98.8. Pulse ox 95% on 2 L. HEENT: Conjunctivae normal. NECK: no JVD. CARDIOVASCULAR: S1, S2 muffled. RESPIRATORY: Breath sounds diminished at the bases. A few scattered rhonchi and crackles. Abdomen is soft. Nontender. No mass palpable. Legs no edema. No swelling. Nervous system: Diffusely weak. LABS: WBC 4.1. Hemoglobin 11.2. Sodium 113, potassium 3.5, creatinine 1.19. ASSESSMENT: 1. Congestive heart failure acute exacerbation with acute on chronic diastolic dysfunction, ejection fraction 65 to 70%. 2. History of breast cancer with metastasis on chemotherapy. 3. Chest ulcerations. 4. Increased creatinine with mild acute renal failure. 5. Diabetes mellitus Type 2. 6. History of congestive heart failure. 7. Hypertension. RECOMMENDATIONS AND DISCUSSION: Recommend to continue the current medications. Continue with monitoring and symptomatic treatment. Continue diuretics. Otherwise, we will monitor the patient closely. Cut down the dose of diuretics and symptomatic treatment. See orders for details. Further recommendations to follow. MTDD
[2016-12-08 06:20] LABS: Basophils % (A) 1 %; CH 34.1; CHCM 33.4; Eosinophils # (A) 0.1 k/uL (0-0.7); Eosinophils % (A) 3 %; HCT 36.6 % (34.0-46.0); HDW 2.28; HGB 12.3 gm/dL (11.4-16.0); Luc # (Auto) 0.06; Luc % (Auto) 2; Lymphocytes # (A) 0.7 k/uL (1.0-4.8); Lymphocytes % (A) 24 %; MCH 34.5 pg (25.0-35.0); MCHC 33.7 g/dL (31.0-37.0); MCV 102.5 fL (80.0-100.0); Macrocytosis Slight; Mean Platelet Volume 8.3; Monocytes % (A) 1 %; Neutrophils # (A) 1.9 k/uL (1.3-7.7); Neutrophils % (A) 70 %; RBC 3.57 m/uL (3.80-5.40); RDW 15.1 % (11.5-15.5); WBC 2.8 k/uL (3.8-10.6); WBC (Perox) 2.93
[2016-12-08 06:32] LABS: Calcium 8.3 mg/dL (8.4-10.2); Potassium 3.9 mmol/L (3.5-5.1)
[2016-12-08] MEDS: CARVEDILOL 12.5 MG TAB PO SCH ×2 (06:40→17:11)
[2016-12-08] MEDS: HEPARIN SODIUM,PORCINE 5,000 UNIT/ML 1 ML VIAL SQ SCH ×2 (08:41→17:11)
[2016-12-08] MEDS: ASPIRIN 81 MG CHEW PO SCH (08:42)
[2016-12-08] MEDS: LISINOPRIL 10 MG TAB PO SCH ×2 (08:42→20:10)
[2016-12-08] MEDS: FUROSEMIDE 10 MG/ML 4 ML VIAL IV SCH ×2 (08:42→20:11)
[2016-12-08] MEDS: PANTOPRAZOLE 40 MG/10 ML VIAL IVP SCH ×2 (08:42→20:11)
[2016-12-08] MEDS: CALCIUM CARBONATE 500 MG CHEWABLE PO SCH (10:52)
[2016-12-08] MEDS: CHOLECALCIFEROL 1,000 UNIT TAB PO SCH (10:53)
[2016-12-08 11:56] VITALS: BMI 24.5
--- NOTE | 2016-12-08 14:16 | P.CNPUL ---
History of Present Illness Consult date: 12/08/16 Requesting physician: Enoc Martinez Reason for consult: pleural effusion Chief complaint: Shortness of breath, difficulty breathing, History of present illness: This is a 81-year-old female with history of stage IV breast cancer, hypertension, hyperlipidemia, diabetes, presents to the hospital a few days ago with increased shortness of breath for the last few days. Chest x-ray upon admission showed evidence of congestive heart failure and bilateral pleural effusions left more so than right. CT angiogram of the chest showed moderate bilateral pleural effusions, compressive atelectasis at both bases, no evidence of pulmonary embolism, possibility of metastasis to the liver was also raised. There was also persistent abnormal thickening over the right breast with asymmetric heterogeneous fibroglandular tissue seen with background of dense tissue noted in both breasts. Underlying mass is not entirely ruled out. Patient was placed on diuretics, and she seems to be clinically improving. Less shortness of breath was noted. Continues to have a small left pleural effusion hence and this consult was initiated. Chest x-ray is definitely showing some improvement compared to the admission chest x-ray. Review of Systems 2. review of systems were obtained, please refer to pertinent positives and negatives as per HPI. Past Medical History Past Medical History: Cancer, Heart Failure, Diabetes Mellitus, Hyperlipidemia, Hypertension, Renal Disease Additional Past Medical History / Comment(s): LT Breast Cancer which is metastatic involving the chest wall and lungs. Renal Cell CA, resected, EDEMA TO LOWER LEGS History of Any Multi-Drug Resistant Organisms: None Reported Additional Past Surgical History / Comment(s): cataracts LT & R EYE, right nephrectomy Past Anesthesia/Blood Transfusion Reactions: No Reported Reaction Past Psychological History: No Psychological Hx Reported Smoking Status: Never smoker Past Alcohol Use History: None Reported Past Drug Use History: None Reported - Past Family History Father Family Medical History: Congestive Heart Failure (CHF) Additional Family Medical History / Comment(s): AT AGE 87- CHF. AT AGE 82 HAD VALVE REPLACEMENT Mother Additional Family Medical History / Comment(s): MOM AT AGE 82-CERVICAL CA Medications and Allergies Home Medications Medication Instructions Recorded Confirmed Type ALPRAZolam [Xanax] 0.25 mg PO BID PRN 07/05/15 12/04/16 History Calcium Carbonate [Calcium] 600 mg PO DAILY 12/04/16 12/04/16 History Carvedilol [Coreg] 12.5 mg PO AC-BID 12/04/16 12/04/16 History Cholecalciferol [Vitamin D3] 2,000 unit PO DAILY 12/04/16 12/04/16 History Lisinopril [Zestril] 10 mg PO BID 12/04/16 12/04/16 History Prochlorperazine [Compazine] 10 mg PO Q6H PRN 12/04/16 12/04/16 History Ribociclib Succinate [Kisqali] 200 mg PO TID 12/04/16 12/04/16 History Allergies Allergy/AdvReac Type Severity Reaction Status Date / Time Penicillins Allergy Rash/Hives Verified 12/04/16 13:57 Physical Exam Vitals: Vital Signs Temp Pulse Resp BP Pulse Ox 12/08/16 11:54 98.2 F 83 20 130/80 94 L 12/08/16 08:00 97.8 F 74 20 136/82 93 L 12/08/16 04:00 97.3 F L 87 16 125/76 93 L 12/08/16 00:00 91 18 140/80 91 L 12/07/16 20:00 98.6 F 86 18 156/77 92 L 12/07/16 15:42 98.5 F 80 18 108/66 95 12/07/16 15:41 71 18 Intake and Output 12/07/16 12/08/16 12/08/16 22:59 06:59 14:59 Intake Total 237 100 240 Output Total 1 2 Balance 236 100 238 Intake: Oral 237 100 240 Output: Stool 1 2 Other: # Voids 2 3 Weight 63 kg 63 kg Patient Weight 12/09/16 06:59 Weight 63 kg HEENT: Head is atraumatic, normocephalic. Pupils equal, round. Neck is supple. There is elevated jugular venous pressure. HEART EXAMINATION: Heart S1, S2 normal. No murmur or gallop heard. CHEST EXAMINATION: Revealed diminished air entry to bilateral bases. Dressing in place the entire anterior chest wall area ABDOMEN: Soft, nontender. Bowel sounds are heard. No organomegaly noted. EXTREMITIES: Significant lymphedema was noted in the right upper extremity. NEUROLOGIC patient is awake, alert and oriented -3. . Results - Laboratory Findings CBC and BMP: 12/08/16 05:54 12/08/16 05:54 PT/INR, D-dimer PT 10.9 sec (9.0-12.0) 12/04/16 14:00 INR 1.1 (<1.2) 12/04/16 14:00 D-Dimer 3.00 mg/L FEU (<0.60) H 12/04/16 14:00 Abnormal lab findings: Abnormal Labs 12/04/16 12/04/16 12/04/16 14:00 14:00 14:00 WBC RBC 3.60 L Hgb MCV 105.3 H RDW Lymphocytes # 0.6 L D-Dimer Potassium BUN 32 H Creatinine 1.20 H Glucose 205 H Calcium 8.2 L ALT 53 H Alkaline Phosphatase 211 H Troponin I 0.202 H* Total Protein 5.9 L Albumin 3.1 L 12/04/16 12/05/16 12/05/16 14:00 05:50 05:50 WBC RBC 3.27 L Hgb 10.9 L MCV 107.2 H RDW 15.6 H Lymphocytes # 0.5 L D-Dimer 3.00 H Potassium BUN 35 H Creatinine 1.20 H Glucose 161 H Calcium 7.2 L ALT Alkaline Phosphatase Troponin I Total Protein Albumin 12/06/16 12/06/16 12/07/16 05:58 05:58 06:10 WBC 2.8 L RBC 3.34 L 3.40 L Hgb 11.2 L MCV 106.6 H 105.7 H RDW Lymphocytes # 0.5 L 0.6 L D-Dimer Potassium 3.4 L BUN 34 H Creatinine 1.19 H Glucose 163 H Calcium 7.5 L ALT Alkaline Phosphatase Troponin I Total Protein Albumin 12/07/16 12/08/16 12/08/16 06:10 05:54 05:54 WBC 2.8 L RBC 3.57 L Hgb MCV 102.5 H RDW Lymphocytes # 0.7 L D-Dimer Potassium BUN 37 H 38 H Creatinine 1.37 H 1.14 H Glucose 119 H 129 H Calcium 7.9 L 8.3 L ALT Alkaline Phosphatase Troponin I Total Protein Albumin - Diagnostic Findings Chest x-ray: image reviewed CT scan - chest: image reviewed Assessment and Plan Plan: Impression: 1 Acute congestive heart failure/possibly secondary to diastolic dysfunction, echocardiogram showed good LV function. 2: Bilateral pleural effusions secondary to congestive heart failure, possibility of malignant effusion is not entirely ruled out but felt to be less likely. 3 history of breast cancer with metastasis 4 history of type 2 diabetes 5 history of renal cell carcinoma and previous nephrectomy 6 right upper extremity lymphedema. Recommendation: I agree with the present treatment plan, continue diuretics, if patient shows any significant worsening, we'll recommend ultrasound of the chest and possibly thoracentesis. At this point we'll continue medical therapy , patient seems to be clinically improving since admission. Time with Patient: Greater than 30
--- NOTE | 2016-12-08 14:56 | PN ---
DATE OF SERVICE: 12/07/2016 This is a 81-year-old woman who was admitted with CHF acute exacerbation, is improving significantly. Chest x-ray shows CHF and as well as left-sided pleural effusion also. Patient also had history of recent breast cancer also. On exam, alert and oriented x3, Pulse 71, blood pressure 100/59, respirations 18, temperature is 98 degrees, pulse ox 94% on room air. HEENT: Conjunctivae normal. NECK: No jugular venous distension. CARDIOVASCULAR SYSTEM: S1, S2, muffled. RESPIRATORY: Breath sounds diminished at the bases, a few scattered rhonchi. ABDOMEN: Soft, nontender. LEGS: No edema, no swelling. NERVOUS SYSTEM: No focal deficits. LABS: WBC is 2.8, hemoglobin is 11.6, creatinine is 1.37. ASSESSMENT: 1. Congestive heart failure acute exacerbation with acute on chronic diastolic dysfunction, ejection fraction is 65% to 70%. 2. History of breast cancer with metastasis on chemotherapy. 3. Increased creatinine with mild acute renal failure. 4. Diabetes mellitus type 2. 5. Hypertension. RECOMMENDATION: Recommend to continue with the current medication, continue with the monitoring and symptomatic treatment. Otherwise, at this time I would recommend continue with the diuretics. I would also recommend evaluation with Pulmonary because of the persistence of pleural effusion. Further recommendations to follow. MTDD
--- NOTE | 2016-12-08 15:12 | P.PN ---
Subjective Principal diagnosis: This is a pleasant 81-year-old female with known history of stage IV breast cancer, who also has cancer to the chest wall . She presented to the hospital with symptoms of progressive dyspnea, currently being treated for exacerbation of congestive cardiac failure. PE was ruled out by CTA. Patient was seen and examined this morning, she does feel better overall. Breathing is improving. Objective - Vital Signs Vital signs: Vital Signs Temp 98.2 F 12/08/16 11:54 Pulse 83 12/08/16 11:54 Resp 20 12/08/16 11:54 BP 130/80 12/08/16 11:54 Pulse Ox 94 L 12/08/16 11:54 Intake & Output 12/07/16 12/08/16 12/08/16 18:59 06:59 18:59 Intake Total 695 100 240 Output Total 353 377 Balance 342 100 -137 Weight 63 kg 63 kg Intake: Oral 695 100 240 Output: Urine 350 375 Stool 3 2 Other: # Voids 1 3 2 - Exam PHYSICAL EXAMINATION: HEENT: Head is atraumatic, normocephalic. Pupils equal, round. Neck is supple. There is no elevated jugular venous pressure. HEART EXAMINATION: Heart S1, S2 normal. No murmur or gallop heard. CHEST EXAMINATION: His reveal diminished air entry to bilateral bases. Dressing in place to the entire anterior chest wall area. ABDOMEN: Soft, nontender. Bowel sounds are heard. No organomegaly noted]. EXTREMITIES:[ 2+ peripheral pulses with significant lymphedema noted to the right upper extremity. NEUROLOGIC [patient is awake, alert and oriented -3.] . - Labs CBC & Chem 7: 12/08/16 05:54 12/08/16 05:54 Labs: Abnormal Lab Results - Last 24 Hours (Table) 12/08/16 12/08/16 Range/Units 05:54 05:54 WBC 2.8 L (3.8-10.6) k/uL RBC 3.57 L (3.80-5.40) m/uL MCV 102.5 H (80.0-100.0) fL Lymphocytes # 0.7 L (1.0-4.8) k/uL BUN 38 H (7-17) mg/dL Creatinine 1.14 H (0.52-1.04) mg/dL Glucose 129 H (74-99) mg/dL Calcium 8.3 L (8.4-10.2) mg/dL Assessment and Plan Plan: Assessment and plan #1 DIASTOLICc congestive heart failure acute on chronic. #2 stage IV breast cancer with metastases involving the chest wall and lungs, undergoing chemotherapy. #3 hypertension #4 acute on chronic kidney disease Plan We will continue current dose of IV Lasix. Continue to monitor intake and output along with daily weights. DNP note has been reviewed, I agree with a documented findings and plan of care. Patient was seen and examined.
[2016-12-09] MEDS: HEPARIN SODIUM,PORCINE 5,000 UNIT/ML 1 ML VIAL SQ SCH ×2 (00:42→07:48)
[2016-12-09] MEDS: CARVEDILOL 12.5 MG TAB PO SCH (06:35)
[2016-12-09 07:27] LABS: Basophils % (A) 1 %; CH 33.6; CHCM 32.4; Eosinophils % (A) 1 %; HCT 35.7 % (34.0-46.0); HDW 2.25; HGB 11.6 gm/dL (11.4-16.0); Luc # (Auto) 0.06; Luc % (Auto) 2; Lymphocytes # (A) 0.7 k/uL (1.0-4.8); Lymphocytes % (A) 23 %; MCH 33.7 pg (25.0-35.0); MCHC 32.4 g/dL (31.0-37.0); Macrocytosis Moderate; Mean Platelet Volume 8.2; Monocytes # (A) 0.1 k/uL (0-1.0); Monocytes % (A) 2 %; Neutrophils # (A) 2.1 k/uL (1.3-7.7); Neutrophils % (A) 71 %; RBC 3.44 m/uL (3.80-5.40); RDW 15.1 % (11.5-15.5); WBC (Perox) 3.03
[2016-12-09] MEDS: METOCLOPRAMIDE 5 MG/ML 2 ML VIAL IVP PRN (07:38)
[2016-12-09] MEDS: ACETAMINOPHEN TAB 325 MG TAB PO PRN ×2 (07:47→14:27)
[2016-12-09] MEDS: PANTOPRAZOLE 40 MG/10 ML VIAL IVP SCH (07:48)
[2016-12-09 07:49] LABS: Calcium 8.1 mg/dL (8.4-10.2); Potassium 3.9 mmol/L (3.5-5.1)
[2016-12-09] MEDS: FUROSEMIDE 10 MG/ML 4 ML VIAL IV SCH (07:49)
[2016-12-09] MEDS: ASPIRIN 81 MG CHEW PO SCH (07:49)
[2016-12-09] MEDS: LISINOPRIL 10 MG TAB PO SCH (07:50)
[2016-12-09 08:00] VITALS: RESP 18
--- NOTE | 2016-12-09 08:55 | PN ---
DATE OF SERVICE: 12/08/2016 This 81-year-old woman was admitted with CHF acute exacerbation, bilateral and pleural effusion also. The patient is on diuretics. Patient is feeling much better. Patient also had extensive breast cancer also. Malignant fluid thought to be less likely by Dr. Ge. No chest pain or palpitation, no fever. On exam, alert and oriented x3. The pulse is 83, blood pressure 130/80, respirations 20, temperature is 98.2, pulse ox 94% on room air. HEENT: Conjunctivae normal. NECK: No jugular venous distension. CARDIOVASCULAR SYSTEM: S1, S2, muffled. RESPIRATORY: Breath sounds diminished at the bases. A few rhonchi, no crackles. ABDOMEN: Soft, nontender. LEGS: No edema, no swelling. NERVOUS SYSTEM: No focal deficits. Labs are at this time showed WBC 2.8, hemoglobin is 12.8 and MCV 102.5, creatinine is 1.14. ASSESSMENT: 1. Congestive heart failure acute exacerbation with acute on chronic diastolic dysfunction, ejection fraction 65% to 70%. 2. History of breast cancer with metastasis, on chemotherapy. 3. Bilateral pleural effusion, left more than the right, possibly secondary to congestive heart failure. 4. Increased creatinine with mild acute renal failure, possibly prerenal. 5. Diabetes mellitus type 2. 6. Hypertension. RECOMMENDATION: Continue with the ongoing symptomatic treatment, otherwise continue to monitor. Guarded prognosis, further recommendations to follow. MTDD
[2016-12-09 11:27] VITALS: BP 101/61; PULSE 79; TEMP 96.8
--- NOTE | 2016-12-09 11:41 | P.PN ---
Subjective Principal diagnosis: This is a pleasant 81-year-old female with known history of stage IV breast cancer, who also has cancer to the chest wall . She presented to the hospital with symptoms of progressive dyspnea, currently being treated for exacerbation of congestive cardiac failure. PE was ruled out by CTA. Patient was seen and examined this morning, she does feel better overall. Breathing is improving. 12/09/2016 Patient seen and examined this morning, overall feeling much better today. She does not have a good appetite, denies any shortness of breath, edema improving. BUN 36, creatinine 1.1. Blood pressure 100/60, heart rate in the 70s. Objective - Vital Signs Vital signs: Vital Signs Temp 96.8 F L 12/09/16 11:27 Pulse 79 12/09/16 11:27 Resp 18 12/09/16 11:27 BP 101/61 12/09/16 11:27 Pulse Ox 95 12/09/16 11:27 Intake & Output 12/08/16 12/09/16 12/09/16 18:59 06:59 18:59 Intake Total 240 120 Output Total 378 1 Balance -138 119 Weight 63 kg 64.1 kg Intake: Oral 240 120 Output: Urine 375 Stool 3 1 Other: # Voids 2 1 - Exam PHYSICAL EXAMINATION: HEENT: Head is atraumatic, normocephalic. Pupils equal, round. Neck is supple. There is no elevated jugular venous pressure. HEART EXAMINATION: Heart S1, S2 normal. No murmur or gallop heard. CHEST EXAMINATION: His reveal diminished air entry to bilateral bases. Dressing in place to the entire anterior chest wall area. ABDOMEN: Soft, nontender. Bowel sounds are heard. No organomegaly noted]. EXTREMITIES:[ 2+ peripheral pulses with significant lymphedema noted to the right upper extremity. NEUROLOGIC [patient is awake, alert and oriented -3.] . - Labs CBC & Chem 7: 12/09/16 06:56 12/09/16 06:52 Labs: Abnormal Lab Results - Last 24 Hours (Table) 12/09/16 12/09/16 Range/Units 06:52 06:56 WBC 3.0 L (3.8-10.6) k/uL RBC 3.44 L (3.80-5.40) m/uL MCV 104.0 H (80.0-100.0) fL Lymphocytes # 0.7 L (1.0-4.8) k/uL Carbon Dioxide 31 H (22-30) mmol/L BUN 36 H (7-17) mg/dL Creatinine 1.15 H (0.52-1.04) mg/dL Glucose 107 H (74-99) mg/dL Calcium 8.1 L (8.4-10.2) mg/dL Assessment and Plan Plan: Assessment and plan #1 DIASTOLICc congestive heart failure acute on chronic. #2 stage IV breast cancer with metastases involving the chest wall and lungs, undergoing chemotherapy. #3 hypertension #4 acute on chronic kidney disease Plan We will discontinue IV Lasix and start the patient on oral diuretics. Continue other medications. From cardiology's perspective once the patient was discharged home we will make her a follow-up appointment in the office post discharge. DNP note has been reviewed, I agree with a documented findings and plan of care. Patient was seen and examined.
[2016-12-09] MEDS: CHOLECALCIFEROL 1,000 UNIT TAB PO SCH (12:27)
[2016-12-09] MEDS: CALCIUM CARBONATE 500 MG CHEWABLE PO SCH (12:28)
--- NOTE | 2016-12-09 12:46 | P.PN ---
Subjective Principal diagnosis: Diastolic congestive heart failure This is a 81-year-old female with history of stage IV breast cancer, hypertension, hyperlipidemia, diabetes, presents to the hospital a few days ago with increased shortness of breath for the last few days. Chest x-ray upon admission showed evidence of congestive heart failure and bilateral pleural effusions left more so than right. CT angiogram of the chest showed moderate bilateral pleural effusions, compressive atelectasis at both bases, no evidence of pulmonary embolism, possibility of metastasis to the liver was also raised. There was also persistent abnormal thickening over the right breast with asymmetric heterogeneous fibroglandular tissue seen with background of dense tissue noted in both breasts. Underlying mass is not entirely ruled out. Patient was placed on diuretics, and she seems to be clinically improving. Less shortness of breath was noted. Continues to have a small left pleural effusion hence and this consult was initiated. Chest x-ray is definitely showing some improvement compared to the admission chest x-ray. Patient was reevaluated today on 12/09/2016, patient is doing well clinically, and she is being considered for discharge planning. Less shortness of breath, no cough no wheezing, no chest pain. Obviously the patient responded well to diuretics, and no chest x-ray was done today. But clinically there is evidence of improvement. CBC was reviewed and basic metabolic profile was also reviewed. Objective - Vital Signs Vital signs: Vital Signs Temp 96.8 F L 12/09/16 11:27 Pulse 79 12/09/16 11:27 Resp 18 12/09/16 11:27 BP 101/61 12/09/16 11:27 Pulse Ox 95 12/09/16 11:27 Intake & Output 12/08/16 12/09/16 12/09/16 18:59 06:59 18:59 Intake Total 240 120 Output Total 378 1 Balance -138 119 Weight 63 kg 64.1 kg Intake: Oral 240 120 Output: Urine 375 Stool 3 1 Other: # Voids 2 1 - Exam HEENT: Head is atraumatic, normocephalic. Pupils equal, round. Neck is supple. There is elevated jugular venous pressure. HEART EXAMINATION: Heart S1, S2 normal. No murmur or gallop heard. CHEST EXAMINATION: Revealed diminished air entry to bilateral bases. Dressing in place the entire anterior chest wall area ABDOMEN: Soft, nontender. Bowel sounds are heard. No organomegaly noted. EXTREMITIES: Significant lymphedema was noted in the right upper extremity. NEUROLOGIC patient is awake, alert and oriented -3. . - Labs CBC & Chem 7: 12/09/16 06:56 12/09/16 06:52 Labs: Abnormal Lab Results - Last 24 Hours (Table) 12/09/16 12/09/16 Range/Units 06:52 06:56 WBC 3.0 L (3.8-10.6) k/uL RBC 3.44 L (3.80-5.40) m/uL MCV 104.0 H (80.0-100.0) fL Lymphocytes # 0.7 L (1.0-4.8) k/uL Carbon Dioxide 31 H (22-30) mmol/L BUN 36 H (7-17) mg/dL Creatinine 1.15 H (0.52-1.04) mg/dL Glucose 107 H (74-99) mg/dL Calcium 8.1 L (8.4-10.2) mg/dL Assessment and Plan Plan: Impression: 1 Acute congestive heart failure/possibly secondary to diastolic dysfunction, echocardiogram showed good LV function. 2: Bilateral pleural effusions secondary to congestive heart failure, possibility of malignant effusion is not entirely ruled out but felt to be less likely. 3 history of breast cancer with metastasis 4 history of type 2 diabetes 5 history of renal cell carcinoma and previous nephrectomy 6 right upper extremity lymphedema. Recommendation: I agree with present treatment plan and discharge planning if cleared by cardiology. Patient must follow-up on outpatient basis, and have follow-up chest x-ray in the next 2 weeks. Time with Patient: Less than 30
[2016-12-09] MEDS ORDERED: FUROSEMIDE 20 MG TAB PO SCH (16:00)
[2016-12-09] MEDS ORDERED: PANTOPRAZOLE 40 MG TABLET PO SCH (17:30)
== END 2016-12-09 15:12 | DRG 291 ==
LOC: EC 13:10 → 6SEL 17:15
PROVIDERS: ADMIT Internal Medicine; ATTEND Internal Medicine
DX: I13.0 Hypertensive heart and chronic kidney disease with heart failure and stage 1 through stage 4 chronic kidney disease, or unspecified chronic kidney disease (principal); I50.33 Acute on chronic diastolic (congestive) heart failure; C78.00 Secondary malignant neoplasm of unspecified lung; C79.51 Secondary malignant neoplasm of bone; E11.22 Type 2 diabetes mellitus with diabetic chronic kidney disease; C50.919 Malignant neoplasm of unspecified site of unspecified female breast; I97.2 Postmastectomy lymphedema syndrome; N18.9 Chronic kidney disease, unspecified; Z51.5 Encounter for palliative care; E78.5 Hyperlipidemia, unspecified; Z79.4 Long term (current) use of insulin; Z79.899 Other long term (current) drug therapy; Z90.5 Acquired absence of kidney; Z85.528 Personal history of other malignant neoplasm of kidney; Z19.1 Hormone sensitive malignancy status; Z17.1 Estrogen receptor negative status [ER-]; Z98.42 Cataract extraction status, left eye; Z90.12 Acquired absence of left breast and nipple
CPT/HCPCS: 36415; 71020; 71275; 80048; 80053; 82550; 82553; 83735; 83880; 84484; 85025; 85379; 85610; 85730; 93005; 93306; 94760; 96374; 96375; 99291